=== PATIENT | female | born 1965 | race Caucasian/White ===

== ENCOUNTER 2020-10-03 17:22 | Outpatient (CLI) | payer BC | END 2020-10-03 17:23 | disposition home or self-care (01) | LOC: COV 17:22 | PROVIDERS: ATTEND Family Medicine | DX: R51.9 Headache, unspecified (principal); R11.2 Nausea with vomiting, unspecified; Z20.822 Contact with and (suspected) exposure to COVID-19 ==

== ENCOUNTER 2021-09-16 10:15 | Emergency (ER) | payer BC ==
--- NOTE | 2021-09-16 10:45 | ED Physician Documentation ---
PD HPI FEMALE - Stated complaint Stated Complaint: SETON DRAIN COMPLICATION - Chief complaint Chief Complaint: General - History obtained from History obtained from: Patient - History of Present Illness Timing - onset: Today (has Seton drain x 2 perirectal area for chronic fistula. SHe noted the loop of the drain was untied today, with the thread unraveled and off. She is concerned the loop could fall out. 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 Has loop tube drains in place senior living.) Similar symptoms before: Diagnosis (has had the threads unravel over time previously and has hd them re-tied.) Review of Systems Constitutional: denies: Fever, Chills Nose: denies: Rhinorrhea / runny nose, Congestion Throat: denies: Sore throat Respiratory: denies: Cough PD PAST MEDICAL HISTORY - Past Medical History GI: Other (perirectal abscess with subsequent fistulas. ) - Allergies Allergies/Adverse Reactions: Allergies Allergy/AdvReac Type Severity Reaction Status Date / Time Anesthetics - Amide Type - Allergy Nausea Verified 09/16/21 12:33 Select A bupivacaine Allergy Nausea Verified 09/16/21 12:33 [From Exparel (PF)] chicken derived Allergy Rash Verified 09/16/21 12:33 egg Allergy Rash Verified 09/16/21 12:33 gluten Allergy Cramps Verified 09/16/21 12:33 lactase [From Dairy Aid] Allergy Cramps Verified 09/16/21 12:33 lidocaine Allergy Nausea Verified 09/16/21 12:33 metronidazole [From Flagyl] Allergy Nausea Verified 09/16/21 12:33 Sulfa (Sulfonamide Allergy Emesis Verified 09/16/21 12:33 Antibiotics) vancomycin Allergy Unknown Verified 09/16/21 12:33 acetaminophen [From Tylenol] AdvReac Unknown Verified 09/16/21 12:33 codeine AdvReac Nausea Verified 09/16/21 12:33 ibuprofen AdvReac Nausea Verified 09/16/21 12:33 sedation meds Allergy Nausea Uncoded 09/16/21 12:33 narcotic pain meds AdvReac Nausea Uncoded 09/16/21 12:33 PD ED PE NORMAL - Vitals Vital signs reviewed: Yes - General General: Alert and oriented X 3, No acute distress, Well developed/nourished - Rectal Rectal: Other (she has 2 small silicone tubing drains perirectally in loop. One is tied into a [place], the other has ends that are not connected. Both are in place right now. ) - Derm Derm: Normal color, Warm and dry Results - Vitals Vitals: Vital Signs - 24 hr 09/16/21 09/16/21 10:20 11:56 Temperature 36.4 C L Heart Rate 87 84 Respiratory 16 19 Rate Blood Pressure 171/74 H 149/82 H O2 Saturation 100 100 Oxygen O2 Source Room air Procedures - General procedure General procedure: 2-0 silk threat used to tie the ends of the loop that is untethered into a loop. THe second one is reinforced with another coil of silk thread around the overlapping ends to reinforce the present ties that look like they are mildly frayed. PD MEDICAL DECISION MAKING - ED course Complexity details: considered differential, d/w patient, d/w is consultant (got advise from Dr. Toledo about material choice and he suggested tying with 2-0 silk for best international trade specialist on the tubing. ) Departure - Departure Disposition: 01 Home, Self Care Clinical Impression: Perirectal fistula Condition: Stable Comments: The seton loop drain should be staying together now with the retied. Follow-up with your GI specialist colorectal as needed. Discharge Date/Time: 09/16/21 12:34
[2021-09-16 11:56] VITALS: BP 149/82
== END 2021-09-16 12:34 | disposition home or self-care (01) ==
LOC: ED 10:15
DX: T85.9XXA Unspecified complication of internal prosthetic device, implant and graft, initial encounter (principal); Y83.8 Other surgical procedures as the cause of abnormal reaction of the patient, or of later complication, without mention of misadventure at the time of the procedure; K60.4 Rectal fistula
CPT/HCPCS: 99281; 99282

== ENCOUNTER 2022-06-14 09:48 | Outpatient (CLI) | payer BC ==
[2022-06-14 15:29] LABS: CHOL/HDL RATIO 2.7 (<4.4); CHOLESTEROL 126 mg/dL; HDL CHOLESTEROL 47 mg/dL; TRIGLYCERIDES 33 mg/dL
[2022-06-15 07:09] LABS: THYROID PEROXIDASE (TPO) AB 11 IU/mL (0-34)
[2022-06-15 18:07] LABS: THYROGLOBULIN ANTIBODY <1.0 IU/mL (0.0-0.9)
== END 2022-06-14 09:49 | disposition home or self-care (01) ==
LOC: LAB.S 09:48
PROVIDERS: ATTEND Naturopath
DX: E72.12 Methylenetetrahydrofolate reductase deficiency (principal); E03.8 Other specified hypothyroidism
CPT/HCPCS: 36415; 80061; 81291; 81599; 83721; 86376; 86800; 86900; 86901

== ENCOUNTER 2022-07-08 08:00 | Outpatient (CLI) | payer BC ==
[2022-07-08 20:48] LABS: BILIRUBIN,URINE NEGATIVE (NEGATIVE); GLUCOSE, URINE (UA) NEGATIVE (NEGATIVE); KETONES,URINE (UA) NEGATIVE (NEGATIVE); LEUKOCYTE ESTERASE, URINE NEGATIVE (NEGATIVE); NITRITE,URINE NEGATIVE (NEGATIVE); OCCULT BLOOD,URINE NEGATIVE (NEGATIVE); PROTEIN,URINE NEGATIVE (NEGATIVE); UROBILINOGEN,URINE 0.2 (NORMAL) E.U./dL (NORMAL)
[2022-07-08 20:57] LABS: CLARITY,URINE CLEAR (CLEAR)
== END 2022-07-08 23:59 | disposition home or self-care (01) ==
LOC: LAB.R 08:00
DX: R30.0 Dysuria (principal)
CPT/HCPCS: 81001; 81003; 87086

== ENCOUNTER 2022-07-19 13:14 | Outpatient (CLI) | payer BC ==
[2022-07-19 21:23] LABS: T3 UPTAKE 44.1 % (32.0-48.4)
[2022-07-19 21:26] LABS: THYROID STIMULATING HORMONE < 0.08 uIU/mL (0.34-5.60)
[2022-07-19 21:28] LABS: FREE T3 4.61 pg/mL (2.5-3.9); FREE T4 (FREE THYROXINE) 1.56 ng/dL (0.58-1.64)
== END 2022-07-19 13:15 | disposition home or self-care (01) ==
LOC: LAB.S 13:14
PROVIDERS: ATTEND Naturopath
DX: E05.90 Thyrotoxicosis, unspecified without thyrotoxic crisis or storm (principal)
CPT/HCPCS: 36415; 84439; 84443; 84445; 84479; 84481